=== PATIENT | female | born 1980 | race Hispanic/Latino ===

== ENCOUNTER 2016-07-16 20:38 | Emergency (ER) | payer BC ==
[2016-07-16 20:54] VITALS: BP 107/55; PULSE 93; RESP 18; TEMP 98.6; O2SAT 99
[2016-07-16] MEDS ORDERED: Sodium Chloride 0.9% 1,000 ML IV STA (21:30)
[2016-07-16 21:50] LABS: BASO % 0.4 % (0.0-2.0); EOS % 0.1 % (0.0-4.0); HEMATOCRIT 27.7 % (34.0-47.0); LYMPH # 1.6 K/uL (1.0-4.3); MEAN CELL VOLUME 63.6 fl (81.0-99.0); MEAN CORPUSCULAR HEMOGLOBIN 18.7 pg (27.0-31.0); MEAN CORPUSCULAR HGB CONC 29.3 g/dL (33.0-37.0); MEAN PLATELET VOLUME 9.5 fl (7.2-11.7); MONO # 0.4 K/uL (0.0-0.8); MONO % 4.4 % (0.0-10.0); NEUT # 7.1 K/uL (1.8-7.0); NEUT % 78.1 % (50.0-75.0); RED CELL DISTRIBUTION WIDTH 21.1 % (11.5-14.5); WHITE BLOOD COUNT 9.1 K/uL (4.8-10.8)
--- NOTE | 2016-07-16 21:54 | ED PDOC ---
HPI: Abdomen Time Seen by Provider: 07/16/16 21:30 Chief Complaint (Nursing): GI Problem Chief Complaint (Provider): abdominal pain History Per: Patient History/Exam Limitations: no limitations Additional Complaint(s): 36yo F in Ed for eval of constipation x today, unable to pass BM though she feels the strong urge associated with pain and some nausea without vomiting, no fever. pt has attempted taking phylyss stool softener and drinking fluids, but no relief. admits she is passing gas. no hx of constipation, no known food irritant or narcotic use. [place] with hx of thalemesmmia. Past Medical History Reviewed: Historical Data, Nursing Documentation, Vital Signs Vital Signs: Last Vital Signs Temp 98.6 F 07/16/16 20:49 Pulse 93 H 07/16/16 20:49 Resp 18 07/16/16 20:49 BP 107/55 L 07/16/16 20:49 Pulse Ox 99 07/16/16 22:14 - Medical History PMH: No Chronic Diseases - Family History Family History: States: No Known Family Hx - Home Medications Home Medications: Ambulatory Orders Medication Instructions Recorded Docusate [Colace] 100 mg PO DAILY #20 cap 07/16/16 - Allergies Allergies/Adverse Reactions: Allergies Allergy/AdvReac Type Severity Reaction Status Date / Time FISH Allergy ANAPHYLAXIS Verified 07/16/16 20:49 orange Allergy ANAPHYLAXIS Verified 07/16/16 20:49 Review of Systems ROS Statement: Except As Marked, All Systems Reviewed And Found Negative Constitutional: Negative for: Fever, Chills Cardiovascular: Negative for: Chest Pain Gastrointestinal: Positive for: Nausea, Abdominal Pain, Constipation. Negative for: Vomiting Physical Exam - Reviewed Nursing Documentation Reviewed: Yes Vital Signs Reviewed: Yes - Physical Exam Appears: Positive for: Non-toxic, No Acute Distress, Uncomfortable Head Exam: Positive for: ATRAUMATIC, NORMAL INSPECTION, NORMOCEPHALIC Skin: Positive for: Normal Color, Warm, DRY Cardiovascular/Chest: Positive for: Regular Rate, Rhythm Respiratory: Positive for: CNT, Normal Breath Sounds Gastrointestinal/Abdominal: Positive for: Bowel Sounds, Soft, Tenderness (veyr mild diffuse ). Negative for: Mass, Distended, Guarding Back: Positive for: Normal Inspection Extremity: Positive for: Normal ROM Neurologic/Psych: Positive for: Alert, Oriented - Laboratory Results Result Diagrams: 07/16/16 21:45 07/16/16 21:45 - ECG O2 Sat by Pulse Oximetry: 99 - Radiology X-Ray: Interpreted by Me (constipation) - Progress ED Course And Treament: impression constipation vs obstruction will get cbc/cmp/UA/obstruction series and NS fluids. Re-evaluation Time: 23:29 Condition: Improved (pt was given a fleet enema and release BM -feels much improved) Medical Decision Making Medical Decision Making: dx: constipation improved in ED and moved BM. will be d.c with colace and advised to increase fluids and fiber Disposition - Clinical Impression Clinical Impression: Constipation - Patient ED Disposition Is Patient to be Admitted: No Counseled Patient/Family Regarding: Studies Performed, Diagnosis, Need For Followup, Rx Given - Disposition Disposition: Routine/Home Disposition Time: 23:32 Condition: IMPROVED Prescriptions: Docusate [Colace] 100 mg PO DAILY #20 cap Instructions: Constipation (ED)
[2016-07-16 21:58] LABS: RBC URINE 2 /hpf (0-3); URINE BACTERIA RARE (<OCC); URINE BILIRUBIN NEGATIVE (NEGATIVE); URINE BLOOD SMALL (NEGATIVE); URINE COLOR STRAW (YELLOW); URINE GLUCOSE (UA) NEG (Normal); URINE KETONE TRACE mg/dL (NEGATIVE); URINE LEUKOCYTE ESTERASE NEG Leu/uL (Negative); URINE PROTEIN NEGATIVE (NEGATIVE); URINE UROBILINOGEN 0.2-1.0 mg/dL (0.2-1.0); WBC URINE < 1 /hpf (0-5)
[2016-07-16 22:05] LABS: ALB/GLOB RATIO 1.3 (1.0-2.1); ALKALINE PHOSPHATASE 49 U/L (38-126); ALT/SGPT 29 U/L (9-52); AST/SGOT 32 U/L (14-36); BILIRUBIN,TOTAL 0.6 mg/dl (0.2-1.3); BLOOD UREA NITROGEN 9 mg/dl (7-17); CALCIUM 8.6 mg/dL (8.4-10.2); CARBON DIOXIDE 23 mmol/L (22-30); CHLORIDE 103 mmol/L (98-107); GFR AFRICAN-AMERICAN > 60; GLUCOSE,RANDOM 89 mg/dL (65-105); POTASSIUM 3.9 MMOL/L (3.6-5.0); SODIUM 135 mmol/l (132-148); TOTAL PROTEIN 7.7 G/DL (6.3-8.2)
--- NOTE | 2016-07-16 22:54 | RAD ---
EXAM: XR Abdomen Complete With XR Chest CLINICAL HISTORY: 36 years old, female; Pain; Abdominal pain; Other: Urination problems; Additional info: Unabvle to pass bm TECHNIQUE: Frontal view of the chest, frontal view of the abdomen/pelvis and upright view of the abdomen. COMPARISON: No relevant prior studies available. FINDINGS: Lungs: No consolidation. Pleural space: No pleural effusion. No pneumothorax. Heart: No cardiomegaly. Mediastinum: Unremarkable. Intraperitoneal space: No definite pneumoperitoneum. Gastrointestinal tract: Moderate to large amount of stool sigmoid colon, rectum. Several nondistended air-filled loops of small bowel. Bones/joints: No acute fracture. Other findings: No abnormal calcifications. IMPRESSION: 1. Fecal retention. 2. Incidental/non-acute findings are described above.
== END 2016-07-17 00:15 | disposition home or self-care (01) ==
LOC: H.ER 20:38
DX: K59.00 Constipation, unspecified (principal)
CPT/HCPCS: 74022; 80053; 81003; 81025; 85025; 99283; J7040